=== PATIENT | male | born 1950 | race Caucasian/White ===

== ENCOUNTER 2023-04-13 14:40 | Emergency (ER) | payer MEDICARE, SELFPAY ==
[2023-04-13] VITALS (36 sets, daily range): BP systolic 73–122; BP diastolic 30–82; PULSE 67–137; RESP 14–29; TEMP 37.1; O2SAT 80–100; BMI 39.2
--- NOTE | 2023-04-13 14:49 | XR_ITS ---
The [address] [address] Patient Name: ESTUARDO FINN MRN: [id number] date: 1950 Sex: M Assigned Patient Location: ER Current Patient Location: ED.MAIN Accession/Order Number: [id number] Exam Date: 04/13/2023 14:58 Report Date: 04/13/2023 15:18 At the request of: CELESTINE SINGLETON Procedure: XR chest 1V EXAMINATION: XR chest 1V 04/13/2023 12:16 PM PST HISTORY: low blood pressure TECHNIQUE: Single frontal view of the chest acquired. COMPARISONS: None. FINDINGS: Lines/tubes/other: None. Heart and mediastinum: The cardiac silhouette is upper limits of normal for size. Bones: No acute osseous abnormality. Lungs: The lungs are clear. There is no evidence of pneumonia or pulmonary edema. Pleura: There is no significant pleural effusion or pneumothorax. Other: None. XR/XR chest 1V IMPRESSION: No acute cardiopulmonary abnormality. Electronically authenticated by: SHANE TODD Date: 04/13/2023 15:18
--- NOTE | 2023-04-13 14:53 | ED_ITS ---
HPI - Weakness General Chief complaint: Weakness Stated complaint: WEAKNESS Time Seen by Provider: 04/13/23 14:49 Source: patient Mode of arrival: ambulance History of Present Illness HPI Narrative: patient here by squad for near syncopal episode. He's not having any pressure or discomfort or difficulty breathing. He says he just feels weak and tired and exhausted his blood pressure was very low. When the paramedics arrived they said his heart rate was thirty and his blood pressure was palpable. paramedics administered fluids and gave 1/2 mg atropine. He was seen immediately on arrival here.not been sick with cough influenza type symptoms fever. No urinary symptomatology no back or flank pain. He has no tearing or ripping sensation in abdomen or the back and no history of aneurysms that he is aware of. He has had a echocardiogram but he doesn't know the results of that are. He says he thinks she's been told he might have congestive heart failure but again he is a very limited historian Related Data Allergies Allergy/AdvReac Type Severity Reaction Status Date / Time No Known Drug Allergies Allergy Verified 04/13/23 14:52 Exam Narrative Exam Narrative: awake alert somewhat pale but not clammy or diaphoretic. Has a palpable pulses in his radial. Examination abdomen it's not distended there is no guarding rebound or rigidity or acute findings. He has no discomfort. He has femoral pulses. He does not have a pulsatile mass in his abdomen. His lungs were clear. Heart sounds are very slow area 12-lead EKG showed very slow atrial fibrillation ventricular response rate approximately forty. There is no ventricular escape beats. HEENT showed no evidence of trauma injury. Cranial nerves were normal. Airway was normal. No respiratory distress. Constitutional Vital Signs, click to edit/add: Last Vital Signs Temp 98.7 F 04/13/23 14:46 Pulse 82 04/13/23 15:29 Resp 19 04/13/23 15:29 BP 81/57 L 04/13/23 15:51 Pulse Ox 98 04/13/23 15:22 O2 Del Method Room Air 04/13/23 14:54 Course Vital Signs Vital signs: Vital Signs Temperature 98.7 F 04/13/23 14:46 Pulse Rate 73 04/13/23 14:46 Respiratory Rate 20 04/13/23 14:46 Blood Pressure 73/43 L 04/13/23 14:46 Pulse Oximetry 98 04/13/23 14:46 Oxygen Delivery Method Room Air 04/13/23 14:46 Temperature 98.7 F 04/13/23 14:46 Pulse Rate 82 04/13/23 15:29 Respiratory Rate 19 04/13/23 15:29 Blood Pressure 81/57 L 04/13/23 15:51 Pulse Oximetry 98 04/13/23 15:22 Oxygen Delivery Method Room Air 04/13/23 14:54 MDM - Weakness MDM Narrative Medical decision making narrative: 12-lead EKG confirms a bradycardia arrhythmia slow atrial fibrillation. A call was placed for cardiology at fifteen forty-five. I spoke with Dr. Nolan Merrill at 1600 hrs. he's accepted transfer the case. His heart rate has not really changed his blood pressure is in the upper 80s to low 90s he's awake and alert still asymptomatic. I've advised transfer to ICU. His chest x-ray is normal. Lab Data Labs: Lab Results 04/13/23 Range/Units 15:38 WBC 16.1 H (4.0-11.0) 10^3/uL RBC 3.59 L (4.70-6.10) 10^6/uL Hgb 10.1 L (14.0-18.0) g/dL Hct 32.9 L (42.0-54.0) % MCV 91.6 (80.0-94.0) fL MCH 28.1 (25.9-34.0) pg MCHC 30.7 (29.9-35.2) g/dL RDW 14.5 (11.0-15.0) % Plt Count 102 L (150-450) 10^3/uL VBG pH 7.303 L (7.330-7.430) VBG pCO2 36.5 L (40.0-52.0) mmHg Discharge Plan Discharge Chief Complaint: Weakness Clinical Impression: Bradycardia Patient Disposition: [facility] Time of Disposition Decision: 16:04 Mode of Transportation: EMS Referrals: [facility] [Primary Care Provider] - 1 week
--- NOTE | 2023-04-13 15:07 | PC.NURSE ---
PT STATES ABLATION 2 YEARS AGO AND HAS APPOINTEMENT WITH DIRECTOR OF DISTRICT OFFICE ON 05/01 TO GET SCHEDULED FOR 2ND ABLATION. HX AFIB. STATES FELT WEAK AND NOT RIGHT FOR A FEW DAYS, STATES WOKE THIS MORNING AND FELT FINE BUT STARTED TO FEEL BAD AGAIN ABOUT NOON
[2023-04-13] MEDS: 0.9 % SODIUM CHLORIDE 1,000 ML 999 ML IV (15:30)
[2023-04-13] MEDS: ONDANSETRON PF 4 MG/2 ML VIAL IV (15:35)
[2023-04-13 15:50] LABS: Hematocrit 32.9 % (42.0-54.0); Hemoglobin 10.1 g/dL (14.0-18.0); Mean Corpuscular HGB Conc 30.7 g/dL (29.9-35.2); Mean Corpuscular Hemoglobin 28.1 pg (25.9-34.0); Mean Corpuscular Volume 91.6 fL (80.0-94.0); PCO2 VBG 36.5 mmHg (40.0-52.0); Platelet Count 102 10^3/uL (150-450); Red Blood Count 3.59 10^6/uL (4.70-6.10); Red Cell Distribution Width 14.5 % (11.0-15.0); White Blood Count 16.1 10^3/uL (4.0-11.0); pH VBG 7.303 (7.330-7.430)
[2023-04-13 16:04] LABS: D Dimer 2.98 mg/L FEU (<=0.59)
[2023-04-13 16:11] LABS: Alanine Aminotransferase 35 U/L (16-63); Albumin Globulin Ratio 0.8; Albumin Level 3.1 g/dL (3.4-5.0); Alkaline Phosphatase 93 U/L (46-116); Anion Gap 15.5; Aspartate Amino Transferase 20 U/L (15-37); Bilirubin Total 0.4 mg/dL (0.2-1.0); Calcium 8.2 mg/dL (8.5-10.1); Carbon Dioxide 21.3 mmol/L (21.0-32.0); Chloride 102 mmol/L (98-107); Estimated GFR (African America 26 (>=60); Estimated GFR (Non-African Ame 21 (>=60); Globulin 3.8 g/dL; Glucose 427 mg/dL (74-106); Magnesium 1.8 mg/dL (1.8-2.4); Sodium 132 mmol/L (136-145); Total Protein 6.9 g/dL (6.4-8.2); Troponin I High Sensitivity 7.5 pg/mL (4.0-76.1)
[2023-04-13 16:13] LABS: Potassium 6.8 mmol/L (3.5-5.1)
[2023-04-13 16:14] LABS: Lactate/Lactic Acid 3.2 mmol/L (0.4-2.0)
[2023-04-13 16:15] LABS: Lymphocytes Absolute Manual 1.28 10^3/uL (1.20-3.80); Monocytes Absolute Manual 0.96 10^3/uL (0.30-0.80); Segmented Neut Absolute Manual 13.52 10^3/uL (1.4-6.5)
[2023-04-13 16:16] LABS: Eosinophils Absolute Manual 0.32 10^3/uL (0.00-0.70)
--- NOTE | 2023-04-13 16:18 | CT_ITS ---
The [address] [address] Patient Name: ESTUARDO FINN MRN: [id number] date: 1950 Sex: M Assigned Patient Location: ER Current Patient Location: ER Accession/Order Number: [id number] Exam Date: 04/13/2023 16:40 Report Date: 04/13/2023 17:00 At the request of: CELESTINE SINGLETON Procedure: CT abdomen pelvis wo con EXAM: CT scan of the abdomen and pelvis without contrast. Dose reduction technique used: Automated exposure control and/or adjustment of the mA and/or kV according to patient size and/or use of iterative reconstruction technique. REASON FOR EXAM: renal failure COMPARISON: None FINDINGS: Right upper quadrant fat stranding along the duodenum, pancreatic head and roxanna hepatis. Cholelithiasis. Nondilated gallbladder. Colonic diverticulosis. Fat-containing ventral hernia. No renal, ureteral or bladder calculi. No hydronephrosis. No evidence of appendicitis. No free fluid in the abdomen or pelvis. No free intraperitoneal air. No dilated or thickened loops of small bowel or colon. Liver, pancreas, spleen, bilateral kidneys, and bilateral adrenal glands are otherwise unremarkable within the limitations of noncontrast CT. No lymphadenopathy in the abdomen or pelvis. Remainder unremarkable. CT/CT abdomen pelvis wo con IMPRESSION: Right upper quadrant inflammatory changes. Considerations include cholecystitis, duodenitis, cholangitis or acute interstitial pancreatitis. Electronically authenticated by: LETI ABRAHAM Date: 04/13/2023 17:00
[2023-04-13] MEDS: INSULIN REGULAR 300 UNITS/3 ML 10 UNIT IV (16:33)
[2023-04-13] MEDS: CALCIUM GLUCONATE 1,000 MG/10 ML VIAL 1000 MG IVP (16:33)
[2023-04-13] MEDS: SODIUM BICARBONATE 50 MEQ/50 ML 8.4% - SYRINGE IV (16:34)
[2023-04-13] MEDS: PIPERACILLIN SODIUM/TAZOBACTAM 4.5 GM in 0.9 % SODIUM CHLORIDE 50 ML IV (18:25)
[2023-04-13 18:48] LABS: SARS-CoV-2 Ag NEGATIVE (NEGATIVE)
[2023-04-13 19:11] LABS: Lactate/Lactic Acid 2.2 mmol/L (0.4-2.0)
[2023-04-14 08:30] LABS: SARS-CoV-2 NAA NOT DETECTED (NOT DETECTE)
== END 2023-04-13 20:10 | disposition short-term general hospital (02) ==
PROVIDERS: Emergency Provider Emergency Medicine Emergency Medical Services; PCP Internal Medicine
DX: R00.1 Bradycardia, unspecified (principal); R53.1 Weakness; K57.30 Diverticulosis of large intestine without perforation or abscess without bleeding
CPT/HCPCS: 36415; 71045; 74176; 80053; 82800; 83605; 83735; 83880; 84484; 85007; 85027; 85378; 87635; 87811; 96361; 96374; 96375; 99285